=== PATIENT | female | born 1975 | race Caucasian/White ===

== ENCOUNTER → 2024-04-02 17:21 | Outpatient (REF) | payer OTHER, SELFPAY | LOC: WDC 17:21 | PROVIDERS: ATTENDING PHYSICIAN Family Medicine | DX: Z00.00 Encounter for general adult medical examination without abnormal findings (principal); Z12.31 Encounter for screening mammogram for malignant neoplasm of breast; T14.90XA Injury, unspecified, initial encounter; G89.29 Other chronic pain | CPT/HCPCS: 71046; 73090; 73522; 77063; 77067 ==

== ENCOUNTER 2025-03-05 21:13 | Emergency (ER) | payer OTHER, SELFPAY ==
[2025-03-05 21:18] VITALS: BP 116/90
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
[2025-03-05] MEDS: NEURONTIN 600 MG PO (23:34)
[2025-03-05 23:43] VITALS: BMI 33.8
[2025-03-05 23:53] LABS: Hematocrit 40.8 % (37.0-47.0); Hemoglobin 13.6 g/dL (12.0-16.0); Mean Corp Hgb Conc. 33.3 g/dL (33.0-37.0); Mean Corpuscular Volume 89.9 fL (81.0-99.0); Nucleated Red Blood Cells % 0 %; Platelet Count 291 10^3/uL (130-400); Red Cell Dist. Width 12.8 % (11.5-14.5)
[2025-03-06 00:15] LABS: ALT (SGPT) 20 U/L (0-35); AST (SGOT) 23 U/L (14-36); Albumin 4.9 g/dl (3.5-5.0); Alkaline Phosphatase 86 U/L (38-126); Blood Urea Nitrogen 11 mg/dl (7-17); Calcium 10.4 mg/dl (8.4-10.2); Carbon Dioxide 30 mmol/L (22-30); Chloride 103 mmol/L (98-107); Estimated Creatinine Clearance 80 ml/min; Glucose 114 mg/dl (70-99); Potassium 3.8 mmol/L (3.5-5.1); Sodium 140 mmol/L (135-145); Total Protein 8.1 g/dl (6.3-8.2); eGFR > 60.00
[2025-03-06 04:07] VITALS: BP 126/74
[2025-03-06 08:36] VITALS: BP 145/91
[2025-03-06] MEDS: NICODERM TRANSDERMAL 21 MG TRANSDERM (08:43)
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
[2025-03-06 10:53] LABS: HCG, Urine Qualitative Screen Negative
[2025-03-06] MEDS: ZOLOFT 100 MG PO (11:47)
== END 2025-03-06 12:44 ==
LOC: EMR 21:13
PROVIDERS: Physician Assistant Medical; CONSULT PHYSICIAN Psychiatry & Neurology Psychiatry; EMERGENCY PHYSICIAN Emergency Medicine; FAMILY PHYSICIAN Family Medicine
DX: F33.2 Major depressive disorder, recurrent severe without psychotic features (principal); R45.851 Suicidal ideations; F41.9 Anxiety disorder, unspecified; F90.9 Attention-deficit hyperactivity disorder, unspecified type; J45.909 Unspecified asthma, uncomplicated; M54.9 Dorsalgia, unspecified; G89.29 Other chronic pain; F17.210 Nicotine dependence, cigarettes, uncomplicated; Z59.01 Sheltered homelessness; T43.226A Underdosing of selective serotonin reuptake inhibitors, initial encounter; T42.6X6A Underdosing of other antiepileptic and sedative-hypnotic drugs, initial encounter; T43.216A Underdosing of selective serotonin and norepinephrine reuptake inhibitors, initial encounter; T43.626A Underdosing of amphetamines, initial encounter; Z91.138 Patient's unintentional underdosing of medication regimen for other reason; Z91.51 Personal history of suicidal behavior
CPT/HCPCS: 99285; 80053; 80306; 80307; 81025; 82077; 85025